=== PATIENT | female | born 1985 | race Caucasian/White ===

== ENCOUNTER 2018-01-16 14:01 | Emergency (ER) | payer BC, OTHER ==
[2018-01-16 14:47] VITALS: RESP 18
[2018-01-16 15:39] LABS: Basophils % (A) 0 %; Eosinophils # (A) 0.2 k/uL (0-0.7); Eosinophils % (A) 2 %; HCT 37.3 % (34.0-46.0); HGB 12.9 gm/dL (11.4-16.0); Lymphocytes # (A) 1.9 k/uL (1.0-4.8); Lymphocytes % (A) 22 %; MCH 33.2 pg (25.0-35.0); MCHC 34.4 g/dL (31.0-37.0); MCV 96.5 fL (80.0-100.0); Mean Platelet Volume 6.7; Monocytes # (A) 0.5 k/uL (0-1.0); Monocytes % (A) 6 %; Neutrophils # (A) 5.6 k/uL (1.3-7.7); Neutrophils % (A) 67 %; Platelet Count 280 k/uL (150-450); RBC 3.87 m/uL (3.80-5.40); RDW 12.3 % (11.5-15.5); WBC 8.4 k/uL (3.8-10.6)
[2018-01-16 15:47] LABS: Appearance,Urine Clear (Clear); Bilirubin,Urine Negative (Negative); Blood,Urine Small (Negative); Color,Urine Light Yellow; Glucose,Urine (UA) Negative (Negative); Ketones,Urine Negative (Negative); Leukocyte Esterase,Urine Negative (Negative); Mucus,Urine Rare /hpf; Nitrite,Urine Negative (Negative); PH, Urine 6.5 (5.0-8.0); Protein,Urine Negative (Negative); RBC,Urine 1 /hpf (0-5); Specific Gravity,Urine 1.013 (1.001-1.035); Squamous Epithelial Cell,Urine 2 /hpf (0-4); Urobilinogen,Urine <2.0 mg/dL (<2.0); WBC,Urine <1 /hpf (0-5)
[2018-01-16 15:50] LABS: Anion Gap 6 mmol/L; Blood Urea Nitrogen 10 mg/dL (7-17); Calcium 9.1 mg/dL (8.4-10.2); Carbon Dioxide 25 mmol/L (22-30); Chloride 106 mmol/L (98-107); Glucose 82 mg/dL (74-99); Potassium 4.2 mmol/L (3.5-5.1); Sodium 137 mmol/L (137-145)
--- NOTE | 2018-01-16 16:18 | US ---
EXAMINATION TYPE: Ultrasound OB <= 14 week fetus DATE OF EXAM: 01/16/2018 COMPARISON: None CLINICAL HISTORY: 32-year-old female Pain. Cramping per patient EXAM PERFORMED: Transabdominal (TA) FINDINGS: EXAM MEASUREMENTS: GESTATIONAL AGE / DATING Dates by LMP: (6 weeks/1 days) EDC: 09/10/2018 Dates by Current Scan for: ( 6 weeks/1 days) EDC: 09/10/2018 MATERNAL ANATOMY Uterus: 9.1 x 6.5 x 5.1 Right Ovary: 2.8 x 1.8 x 1.6 cm Left Ovary: 2.5 x 2.1 x 1.9 Post CDS / Adnexa: no free fluid Presence of free fluid: no Presence of corpus luteal cyst: left ovarian lesion = 1.4 x 1.2 x 1.0 cm Presence of subchorionic bleed: no GESTATION / SURVEY CRL: 0.4 cm (6 weeks/1 days) MSD: seen, not measured Yolk Sac (normal less than 6mm): 2.0 mm Heart Rate: 134 bpm Rhythm: Normal IUP: Viable IUP Date of LMP: 12/04/2017, Beta HcG (if available): Not available at this time Civil Drafter notes: Single live IUP measuring 6 weeks 1 day IMPRESSION: Single live intrauterine with gestational age of 6 weeks 1 day by crown-rump length. Size e quals dates. 1.4 cm corpus luteum in the left ovary. Complete survey recommended at 18-20 weeks.
--- NOTE | 2018-01-16 16:36 | ED ---
Abdominal Pain HPI - General Chief Complaint: Abdominal Pain Stated Complaint: Cramping and 5 wks Time Seen by Provider: 01/16/18 14:59 Source: patient, RN notes reviewed Mode of arrival: ambulatory Limitations: no limitations - History of Present Illness Initial Comments: This is a 32-year-old female presents emergency Department chief complaint abdominal pain and early . Patient states that she does have some left lower quadrant abdominal pain. Patient states proximal was 6 weeks . Patient denies any vaginal bleeding or vaginal discharge. Denies any nausea vomiting diarrhea constipation. Patient has not seen DISTANCE LEARNING COORDINATOR at this time. Patient is A0 denies any fevers or chills. Patient offers no other complaints. - Related Data Home Medications Medication Instructions Recorded Confirmed Pnv72/Iron,Gluc/Folic/Dss/Dha 1 tab PO DAILY 05/23/14 01/16/18 [Citranatal 90 Dha Combo Pack] Allergies Allergy/AdvReac Type Severity Reaction Status Date / Time No Known Allergies Allergy Verified 01/16/18 14:47 Review of Systems ROS Statement: Those systems with pertinent positive or pertinent negative responses have been documented in the HPI. ROS Other: All systems not noted in ROS Statement are negative. Past Medical History Past Medical History: No Reported History History of Any Multi-Drug Resistant Organisms: None Reported Past Surgical History: No Surgical Hx Reported Past Anesthesia/Blood Transfusion Reactions: No Reported Reaction Past Psychological History: No Psychological Hx Reported Smoking Status: Current every day smoker Past Alcohol Use History: None Reported Past Drug Use History: None Reported - Past Family History Father Family Medical History: Diabetes Mellitus General Exam Limitations: no limitations General appearance: alert, in no apparent distress Head exam: Present: atraumatic, normocephalic, normal inspection Respiratory exam: Present: normal lung sounds bilaterally. Absent: respiratory distress, wheezes, rales, rhonchi, stridor Cardiovascular Exam: Present: regular rate, normal rhythm, normal heart sounds. Absent: systolic murmur, diastolic murmur, rubs, gallop, clicks GI/Abdominal exam: Present: soft, normal bowel sounds. Absent: distended, tenderness, guarding, rebound, rigid Back exam: Absent: CVA tenderness (R), CVA tenderness (L) Skin exam: Present: warm, dry, intact, normal color. Absent: rash Course Vital Signs 01/16/18 14:45 Temperature 98.5 F Pulse Rate 73 Respiratory 18 Rate Blood Pressure 100/62 O2 Sat by Pulse 100 Oximetry Medical Decision Making - Medical Decision Making 32-year-old female presents emergency department for abdominal pain and . Patient has a single viable IUP 6 weeks 1 day with a left ovarian cyst. Lab work urinalysis otherwise unremarkable. - Lab Data Result diagrams: 01/16/18 15:22 01/16/18 15:22 Lab Results 01/16/18 01/16/18 01/16/18 Range/Units 15:22 15:22 15:30 WBC 8.4 (3.8-10.6) k/uL RBC 3.87 (3.80-5.40) m/uL Hgb 12.9 (11.4-16.0) gm/dL Hct 37.3 (34.0-46.0) % MCV 96.5 (80.0-100.0) fL MCH 33.2 (25.0-35.0) pg MCHC 34.4 (31.0-37.0) g/dL RDW 12.3 (11.5-15.5) % Plt Count 280 (150-450) k/uL Neutrophils % 67 % Lymphocytes % 22 % Monocytes % 6 % Eosinophils % 2 % Basophils % 0 % Neutrophils # 5.6 (1.3-7.7) k/uL Lymphocytes # 1.9 (1.0-4.8) k/uL Monocytes # 0.5 (0-1.0) k/uL Eosinophils # 0.2 (0-0.7) k/uL Basophils # 0.0 (0-0.2) k/uL Sodium 137 (137-145) mmol/L Potassium 4.2 (3.5-5.1) mmol/L Chloride 106 (98-107) mmol/L Carbon Dioxide 25 (22-30) mmol/L Anion Gap 6 mmol/L BUN 10 (7-17) mg/dL Creatinine 0.51 L (0.52-1.04) mg/dL Est GFR (CKD-EPI)AfAm >90 (>60 ml/min/1.73 sqM) Est GFR (CKD-EPI)NonAf >90 (>60 ml/min/1.73 sqM) Glucose 82 (74-99) mg/dL Calcium 9.1 (8.4-10.2) mg/dL Urine Color Light Yellow Urine Appearance Clear (Clear) Urine pH 6.5 (5.0-8.0) Ur Specific [place] 1.013 (1.001-1.035) Urine Protein Negative (Negative) Urine Glucose (UA) Negative (Negative) Urine Ketones Negative (Negative) Urine Blood Small H (Negative) Urine Nitrite Negative (Negative) Urine Bilirubin Negative (Negative) Urine Urobilinogen <2.0 (<2.0) mg/dL Ur Leukocyte Esterase Negative (Negative) Urine RBC 1 (0-5) /hpf Urine WBC <1 (0-5) /hpf Ur Squamous Epith Cells 2 (0-4) /hpf Urine Mucus Rare H (None) /hpf Disposition Clinical Impression: , Ovarian cyst Disposition: HOME SELF-CARE Condition: Stable Instructions: Abdominal Pain in (ED) Additional Instructions: Please return to the Emergency Department if symptoms worsen or any other concerns. Is patient prescribed a controlled substance at d/c from ED?: No Referrals: None,Stated [Primary Care Provider] - 1-2 days Time of Disposition: 16:36
[2018-01-16 16:49] VITALS: BP 104/61; PULSE 66; TEMP 98.3
== END 2018-01-16 16:47 | disposition home or self-care (01) ==
LOC: EC 14:01
DX: O34.81 Maternal care for other abnormalities of pelvic organs, first trimester (principal); N83.202 Unspecified ovarian cyst, left side; O99.332 Smoking (tobacco) complicating pregnancy, second trimester; F17.200 Nicotine dependence, unspecified, uncomplicated; Z3A.01 Less than 8 weeks gestation of pregnancy
CPT/HCPCS: 36415; 76801; 80048; 81001; 85025; 86900; 86901; 99284

== ENCOUNTER 2018-08-20 19:20 | Outpatient (CLI) | payer BC ==
[2018-08-20 20:59] VITALS: BP 127/73; PULSE 97; RESP 16; TEMP 98.4
--- NOTE | 2018-08-27 10:19 | P.MSEPDOC ---
Presenting Problems - Arrival Data Date of Arrival on Unit: 08/20/18 Time of Arrival on Unit: 19:20 Mode of Transport: Ambulatory - Complaint OB-Reason for Admission/Chief Complaint: Possible Onset of Labor Medical History - Information : 3 Para: 2 Term: 2 : 0 Abortions: Spontaneous or Elective: 0 Number of Living Children: 2 - Gestational Age Gestational Age by MILENA (wks/days): 37 Weeks and 0 Days - History Complications: Smoker Review of Systems - Review of Systems Constitutional: No problems Breast: No problems ENT: No problems Cardiovascular: No problems Respiratory: No problems Gastrointestinal: No problems Genitourinary: No problems Musculoskeletal: No problems Neurological: No problems Skin: No problems Vital Signs - Temperature Temperature: 98.4 F Temperature Source: Temporal Artery Scan - Pulse Right Brachial Pulse Rate: 97 Pulse Assessment Method: Automatic Cuff - Respirations Respiratory Rate: 16 Oxygen Delivery Method: Room Air O2 Sat by Pulse Oximetry: 97 - Blood Pressure Right Arm Blood Pressure: 127/73 Blood Pressure Mean: 91 Blood Pressure Source: Automatic Cuff Medical Screen Scoring (Pre) - Cervical Exam Dilation: 1-3 cm = 1 Membranes: Intact - Uterine Contractions Frequency: > 5 minutes apart = 1 Duration: N/A Intensity: N/A - Maternal Vital Signs Maternal Temperature: N/A Maternal Blood Pressure: N/A Signs of Preeclampsia: N/A Maternal Respirations: N/A - Pain Assessment Pain Location and Character: Lower, Abdomen Pain Scale Used: Numeric (1 - 10) Pain Intensity: 8 Pain Description: *Acute, Cramping Pain Frequency: Intermittent Pain Duration Units: Minutes Pain Behavior: Vocalization Pain Aggravating Factors: Contractions - Total Score Total Score (Pre): 2 - Level of Risk Level of Risk: N/A Physician Notification (Pre) - Physician Notified Physician Notified Date: 08/20/18 Physician Notified Time: 20:19 Physician/Practitioner Notifed:: Dr. Sharif Spoke With: Dr. Sharif New Order Received: Yes - Notification Comment Comment: Dr Sharif in unit, report given on pt in. tr. Vag exam. VS. Reactive NST. Orders recieved to. recheck pt after one hr from initial vag exam. If no. change in vag exam, pt may be d/c to home. Disposition - Disposition OB Disposition: Discharge to home Discharge Date: 08/20/18 Discharge Time: 20:40 I agree with the RN Medical Screening Exam: Yes Risk & Benefit of care provided described in d/c instruction: Yes Diagnosis: FALSE LABOR AT OR AFTER 37 COMPLETED WEEKS OF GESTATION
== END 2018-08-20 20:40 | disposition home or self-care (01) ==
LOC: FBPOP 19:20
PROVIDERS: ATTEND Obstetrics & Gynecology
DX: O47.1 False labor at or after 37 completed weeks of gestation (principal); O99.333 Smoking (tobacco) complicating pregnancy, third trimester; F17.200 Nicotine dependence, unspecified, uncomplicated; Z3A.37 37 weeks gestation of pregnancy
CPT/HCPCS: 59025; 99213

== ENCOUNTER 2018-08-29 17:05 | Outpatient (CLI) | payer BC ==
[2018-08-29 17:37] VITALS: BP 127/70; PULSE 107; RESP 16; TEMP 98.2
[2018-08-29] MEDS ORDERED: LACTATED RINGERS 1,000 ML IV SCH (18:30)
--- NOTE | 2018-09-06 12:43 | P.MSEPDOC ---
Presenting Problems - Arrival Data Date of Arrival on Unit: 08/29/18 Time of Arrival on Unit: 17:05 Mode of Transport: Ambulatory - Complaint OB-Reason for Admission/Chief Complaint: Possible Onset of Labor Comment: pt reports contraction for the past few days, have become stronger since this morning Medical History - Information : 3 Para: 2 Term: 2 : 0 Abortions: Spontaneous or Elective: 0 Number of Living Children: 2 - Gestational Age Gestational Age by MILENA (wks/days): 38 Weeks and 2 Days Review of Systems - Review of Systems Constitutional: No problems Breast: No problems ENT: No problems Cardiovascular: No problems Respiratory: No problems Gastrointestinal: No problems Genitourinary: No problems Musculoskeletal: No problems Neurological: No problems Skin: No problems Vital Signs - Temperature Temperature: 98.2 F Temperature Source: Oral - Pulse Right Pulse Rate: 107 Pulse Assessment Method: Automatic Cuff - Respirations Respiratory Rate: 16 Oxygen Delivery Method: Room Air - Blood Pressure Right Arm Blood Pressure: 127/70 Blood Pressure Mean: 89 Blood Pressure Source: Automatic Cuff Medical Screen Scoring (Pre) - Cervical Exam Dilation: 1-3 cm = 1 Membranes: Intact - Uterine Contractions Frequency: N/A - Maternal Vital Signs Maternal Temperature: N/A Maternal Blood Pressure: N/A Signs of Preeclampsia: N/A Maternal Respirations: N/A - Maternal Trauma Maternal Trauma: N/A - Assessment - Baby A Baseline FHR: 135 Heart Rate - NICHD Category: Category I (Normal) = 0 NST: Reactive Position: N/A Station: N/A - Total Score - Baby A Total Score - Baby A: 1 - Level of Risk - Baby A Level of Risk - Baby A: Low (0-5) - Pain Assessment Pain Location and Character: Abdomen Pain Scale Used: Numeric (1 - 10) Pain Intensity: 7 Pain Management Goal: 7 Pain Description: *Acute Pain Frequency: Intermittent Pain Duration: 3 Pain Duration Units: Days Pain Behavior: None Exhibited Pain Aggravating Factors: Contractions Physician Notification (Pre) - Physician Notified Physician Notified Date: 08/29/18 Physician Notified Time: 18:05 Physician/Practitioner Notifed:: kym Spoke With: kym New Order Received: Yes - Notification Comment Comment: report fht, contraction pattern, cervical exam. would like and iv bolus. Physician Notification (Post) - Physician Notified Physician Notified Date: 08/29/18 Physician Notified Time: 19:25 Physician/Practitioner Notified:: kym Spoke With: kym New Order Received: Yes - Notification Comment Comment: reported no cervical change after two hours and iv hydration. pt may be discharged home with instruction Disposition - Disposition OB Disposition: Discharge to home Discharge Date: 08/29/18 Discharge Time: 19:39 I agree with the RN Medical Screening Exam: Yes Risk & Benefit of care provided described in d/c instruction: Yes Diagnosis: FALSE LABOR AT OR AFTER 37 COMPLETED WEEKS OF GESTATION
== END 2018-08-29 19:45 | disposition home or self-care (01) ==
LOC: FBPOP 17:05
PROVIDERS: ATTEND Obstetrics & Gynecology Obstetrics
DX: O47.1 False labor at or after 37 completed weeks of gestation (principal); Z3A.38 38 weeks gestation of pregnancy
CPT/HCPCS: 59025; 96360; 96367; 99214

== ENCOUNTER 2018-09-06 06:30 | Inpatient (IN) | payer BC ==
[2018-09-06] MEDS ORDERED: PENICILLIN G POTASSIUM 5,000,000 UNIT in DEXTROSE 5% IN WATER 100 ML IVPB STA ×2 (06:51)
[2018-09-06] MEDS ORDERED: OXYTOCIN 10 UNIT/ML 1 ML VIAL IM PRN (06:51)
[2018-09-06] MEDS ORDERED: TERBUTALINE 1 MG/ML VIAL SQ PRN (06:51)
[2018-09-06] MEDS ORDERED: LIDOCAINE 0.5% (PF) 5 MG/ML (50 ML SDV) SQ PRN (06:51)
[2018-09-06] MEDS ORDERED: METHYLERGONOVINE 0.2 MG/ML 1 ML AMP IM PRN (06:51)
[2018-09-06] MEDS ORDERED: CARBOPROST TROMETHAMINE 250 MCG/ML 1 ML AMP IM PRN (06:51)
[2018-09-06] MEDS ORDERED: OXYTOCIN 30 UNITS/500 ML NS 30 UNIT in SALINE 1 500ML.BAG IV SCH (07:00)
[2018-09-06] MEDS ORDERED: LACTATED RINGERS 1,000 ML IV SCH (07:00)
[2018-09-06 07:18] LABS: Basophils % (A) 0 %; Eosinophils # (A) 0.2 k/uL (0-0.7); Eosinophils % (A) 1 %; HCT 40.3 % (34.0-46.0); HGB 13.2 gm/dL (11.4-16.0); Lymphocytes % (A) 16 %; MCH 32.2 pg (25.0-35.0); MCHC 32.8 g/dL (31.0-37.0); Mean Platelet Volume 8.1; Monocytes # (A) 0.9 k/uL (0-1.0); Monocytes % (A) 8 %; Neutrophils # (A) 8.9 k/uL (1.3-7.7); Neutrophils % (A) 73 %; Platelet Count 245 k/uL (150-450); RBC 4.12 m/uL (3.80-5.40); RDW 14.9 % (11.5-15.5); WBC 12.3 k/uL (3.8-10.6)
[2018-09-06 07:28] VITALS: BMI 27.6
[2018-09-06] MEDS ORDERED: BUTORPHANOL 1 MG/ML 1 ML VIAL IV PRN (08:37)
--- NOTE | 2018-09-06 08:41 | P.HPOB ---
History of Present Illness H&P Date: 09/06/18 Chief Complaint: 39+ weeks, elective induction The patient is a 32-year-old 3 para 2 scissors or 2 admitted at 39+ weeks as established by last menstrual period and confirmed by 6 week ultrasound. She is admitted for elective induction of labor with a favorable cervix and all signs reassuring. Her has been uncomplicated though she did have a low-grade Pap which will be followed up . She additionally was found to be group B strep positive. As result antibiotics have been started. Obstetrical history: 3 para 2001 with 2 term vaginal deliveries without complications. Current statistics are listed in history of present illness. EDC of 09/10/2018 was established by last menstrual period and confirmed by 6 week ultrasound. Laboratory workup demonstrates a blood type of O+ with a negative antibody screen. Rubella status is immune. The remainder of the laboratory workup was within normal limits aside from the low-grade Pap as noted above. One hour Glucola was normal and group B strep status is positive. Gynecologic history: Unremarkable with no history of any infections to include STDs. Review of Systems Review of systems is confined to history of present illness. Past Medical History Past Medical History: No Reported History History of Any Multi-Drug Resistant Organisms: None Reported Past Surgical History: No Surgical Hx Reported Past Anesthesia/Blood Transfusion Reactions: No Reported Reaction Past Psychological History: No Psychological Hx Reported Smoking Status: Current every day smoker Past Alcohol Use History: None Reported Past Drug Use History: None Reported - Past Family History Father Family Medical History: Diabetes Mellitus Medications and Allergies Home Medications Medication Instructions Recorded Confirmed Type Pnv72/Iron,Gluc/Folic/Dss/Dha 1 tab PO DAILY 05/23/14 09/06/18 History [Citranatal 90 Dha Combo Pack] Allergies Allergy/AdvReac Type Severity Reaction Status Date / Time No Known Allergies Allergy Verified 09/06/18 06:50 Exam Intake and Output 09/05/18 09/06/18 09/06/18 22:59 06:59 14:59 Other: Weight 77.564 kg In general, this is a well-developed, well-nourished female in no acute distress. Her heart has a regular rhythm and rate without murmur. Her lungs are clear to auscultation bilaterally in all villaseñor. Her abdomen is gravid, nondistended, has normal active bowel sounds, soft, nontender, and without any palpable masses aside from uterine fundus. Her extremities are without any cyanosis, clubbing, or edema and are nontender to palpation bilaterally. Digital cervical examination demonstrates her cervix to be approximately 4 cm dilated, 50% effaced, the vertex in presentation at -2-3 station. Artificial rupture of membranes is carried out demonstrating clear fluid. Results Result Diagrams: 09/06/18 06:50 Abnormal Lab Results - Last 24 Hours (Table) 09/06/18 Range/Units 06:50 WBC 12.3 H (3.8-10.6) k/uL Neutrophils # 8.9 H (1.3-7.7) k/uL Assessment and Plan (1) Term Current Visit: Yes Status: Acute Code(s): Z34.90 - ENCNTR FOR SUPRVSN OF NORMAL , UNSP, UNSP TRIMESTER SNOMED Code(s): 72697958 (2) Group B streptococcal infection in Current Visit: Yes Status: Acute Code(s): O98.819 - OTH MATERNAL INFEC/PARASTC DISEASES COMP PREG, UNSP TRI; B95.1 - STREPTOCOCCUS, GROUP B, CAUSING DISEASES CLASSD ELSWHR SNOMED Code(s): 170691334 Plan: The patient has been admitted for induction of labor understanding that the risk of an elective induction is slightly greater than if labor ensued spontaneously. As she is group E strep positive, penicillin has been started for prophylaxis. Pitocin augmentation has been started as well. She has undergone artificial rupture of membranes. She will have close maternal and surveillance and expectant management will be practiced. She is a good candidate for either IV or epidural analgesia, whichever she may choose.
[2018-09-06] MEDS ORDERED: BENZOCAINE/MENTHOL SPRAY 1 GM/SPRAY AEROSOL TOPICAL PRN (10:18)
[2018-09-06] MEDS ORDERED: diphenhydrAMINE 50 MG/ML 1 ML VIAL IVP PRN ×2 (10:18)
[2018-09-06] MEDS ORDERED: ZOLPIDEM 5 MG TAB PO PRN (10:18)
[2018-09-06] MEDS ORDERED: diphenhydrAMINE 50 MG CAP PO PRN (10:18)
[2018-09-06] MEDS ORDERED: WITCH HAZEL 1 EACH MED..PAD TOPICAL PRN (10:18)
[2018-09-06] MEDS ORDERED: SIMETHICONE 80 MG CHEWABLE PO PRN (10:18)
[2018-09-06] MEDS ORDERED: HYDROcodone/APAP 7.5-325MG 1 EACH TAB PO PRN (10:18)
[2018-09-06] MEDS ORDERED: HYDROcodone/APAP 5-325MG 1 EACH TAB PO PRN (10:18)
[2018-09-06] MEDS ORDERED: LANOLIN CREAM 5 GM TUBE TOPICAL PRN (10:18)
[2018-09-06] MEDS ORDERED: diphenhydrAMINE 25 MG CAP PO PRN (10:18)
[2018-09-06] MEDS ORDERED: HYDROCORTISONE 2.5% RECTAL CREAM 30 GM TUBE RECTAL PRN (10:18)
--- NOTE | 2018-09-06 10:21 | P.PROBDLV ---
Vaginal Delivery Note - . Vaginal Delivery Note: The patient is a 32-year-old 3 para 2 scissors or 2 admitted at 39-3/7 weeks by good dating parameters perches admitted for elective induction of labor with all signs reassuring. Her has been entirely uncomplicated though she was found to be group B strep positive. As result, she had penicillin started for antibiotic prophylaxis and additionally had Pitocin started. She underwent artificial rupture of membranes demonstrating clear fluid. She made rapid progress through both the latent and active phase of labor to complete and then pushed over the course of 1-2 contractions to a normal spontaneous vaginal delivery of a viable 6 lbs. 14 oz. baby girl with Apgars of 9 at 1 minute and 9 at 5 minutes delivered in the left occiput anterior position. The placenta was delivered spontaneously, intact, and grossly normal with a grossly normal ce ntrally inserted three-vessel cord. There were no lacerations of the perineum, vagina, or cervix. Estimated blood loss for the case was approximately 100 mL or less. There were no complications. Both mother and are resting comfortably in recovery.
[2018-09-06] MEDS ORDERED: OXYTOCIN 20 UNITS/1000 ML NS 1,000 ML IV SCH (10:30)
[2018-09-06] MEDS: IBUPROFEN 600 MG TAB PO PRN ×2 (10:32→18:57)
[2018-09-06] MEDS ORDERED: PENICILLIN G POTASSIUM 2,500,000 UNIT in DEXTROSE 5% IN WATER 100 ML IVPB SCH ×2 (11:00)
[2018-09-06] MEDS: NICOTINE 14MG/24HR PATCH TRANSDERM SCH (16:32)
[2018-09-06] MEDS: SENNOSIDES-DOCUSATE SODIUM 1 EACH TAB PO SCH (20:38)
[2018-09-06] MEDS: ACETAMINOPHEN TAB 325 MG TAB PO PRN (23:44)
[2018-09-07] MEDS: IBUPROFEN 600 MG TAB PO PRN ×4 (01:00→21:51)
[2018-09-07] MEDS: ACETAMINOPHEN TAB 325 MG TAB PO PRN ×4 (05:05→23:55)
[2018-09-07] MEDS: SENNOSIDES-DOCUSATE SODIUM 1 EACH TAB PO SCH ×2 (07:31→21:32)
[2018-09-07] MEDS: NICOTINE 14MG/24HR PATCH TRANSDERM SCH (11:22)
--- NOTE | 2018-09-07 13:02 | P.PNOBGVD ---
Subjective - Subjective Patient reports: Reports appetite normal, Reports voiding normally, Reports pain well controlled, Reports ambulating normally : doing well (Is to remain in the hospital for 48 hours of observation for inadequate antibiotic prophylaxis for group B strep.) Objective - Latest Vital Signs Latest vital signs: Vital Signs Temp Pulse Resp BP 09/07/18 07:35 98.0 F 74 18 111/69 09/06/18 23:47 98.4 F 66 16 106/65 09/06/18 20:00 98.4 F 68 16 102/60 09/06/18 16:00 98.3 F 65 17 119/76 - Exam Extremities: Present: normal Abdomen: Present: normal appearance, soft Uterus: Present: normal, firm (The uterine fundus is tonic and nontender just below the umbilicus.) Assessment and Plan (1) Term Current Visit: Yes Status: Acute Code(s): Z34.90 - ENCNTR FOR SUPRVSN OF NORMAL , UNSP, UNSP TRIMESTER SNOMED Code(s): 68725640 (2) Group B streptococcal infection in Current Visit: Yes Status: Acute Code(s): O98.819 - OTH MATERNAL INFEC/PARASTC DISEASES COMP PREG, UNSP TRI; B95.1 - STREPTOCOCCUS, GROUP B, CAUSING DISEASES CLASSD ELSWHR SNOMED Code(s): 598793386 (3) Normal spontaneous vaginal delivery Current Visit: Yes Status: Acute Code(s): O80 - ENCOUNTER FOR FULL-TERM UNCOMPLICATED DELIVERY SNOMED Code(s): 21065844 Plan: Continue routine care. Anticipate discharge home tomorrow pending applications.
[2018-09-08 01:36] VITALS: RESP 16
--- NOTE | 2018-09-08 08:43 | P.DS ---
Providers Date of admission: 09/06/18 06:32 Expected date of discharge: 09/08/18 Attending physician: Bari Sharif Primary care physician: Stated None - Discharge Diagnosis(es) (1) Term Current Visit: Yes Status: Acute (2) Group B streptococcal infection in Current Visit: Yes Status: Acute (3) Normal spontaneous vaginal delivery Current Visit: Yes Status: Acute Hospital Course: The patient is a 32-year-old 3 para 2001 admitted at 39+ weeks by good dating parameters. She is admitted for elective induction with a favorable cervix and all signs reassuring. Her was uncomplicated though group B strep status was positive. On labor and delivery, she had antibiotic prophylaxis started for group B strep as well as Pitocin augmentation. She underwent artificial rupture of membranes of clear fluid and then made very rapid progress through the latent and active phase of labor to complete. She pushed quickly to a normal spontaneous vaginal delivery of a viable 6 lbs. 14 oz. baby girl with Apgars of 9 at 1 minute and 9 at 5 minutes. Her course was unremarkable with vital signs remaining stable and her temperature was afebrile throughout. The infant was required to remain in the hospital for 48 hours ending the outcome of a culture secondary to inadequate antibiotic prophylaxis. The patient was deemed stable for discharge on day #2 was discharged home to follow-up in the office in 6 weeks routinely. Discharge instructions included calling for any significantly increased bleeding or foul- smelling lochia, significantly increased fever or abdominal pain, perineal complaints, breast complaints, or anything else that concerned her. She was additionally instructed to have nothing in the vagina for at least 6 weeks time to include intercourse. She understood her instructions and agrees to follow up as noted above. Discharge medications included continued vitamins as she is considering breast-feeding. She otherwise is to use [id number] analgesic pain medications as needed. Maternal blood type is O+ and rubella status is immune. Procedures: #1. Antibody prophylaxis #2. Pitocin induction #3. Artificial rupture of membranes #4. Normal spontaneous vaginal delivery Patient Condition at Discharge: Good Plan - Discharge Summary Discharge Rx Participant: Yes New Discharge Prescriptions: No Action Pnv72/Iron,Gluc/Folic/Dss/Dha [Citranatal 90 Dha Combo Pack] 1 tab PO DAILY Discharge Medication List Pnv72/Iron,Gluc/Folic/Dss/Dha [Citranatal 90 Dha Combo Pack] 1 tab PO DAILY 05/23/14 [History] Follow up Appointment(s)/Referral(s): Bari Sharif MD [STAFF PHYSICIAN] - 6 Weeks Discharge Disposition: HOME SELF-CARE
[2018-09-08 08:54] VITALS: BP 131/82; PULSE 69; TEMP 98.4
[2018-09-08] MEDS: IBUPROFEN 600 MG TAB PO PRN (09:39)
[2018-09-08] MEDS: SENNOSIDES-DOCUSATE SODIUM 1 EACH TAB PO SCH (10:23)
[2018-09-08] MEDS: NICOTINE 14MG/24HR PATCH TRANSDERM SCH (13:48)
== END 2018-09-08 12:00 | disposition home or self-care (01) | DRG 807 ==
LOC: 4FBP 06:32
PROVIDERS: ADMIT Obstetrics & Gynecology; ATTEND Obstetrics & Gynecology
PROC: 10E0XZZ Delivery of Products of Conception, External Approach (ICD-10-PCS; principal; 2018-09-06)
PROC: 10907ZC Drainage of Amniotic Fluid, Therapeutic from Products of Conception, Via Natural or Artificial Opening (ICD-10-PCS; 2018-09-06)
PROC: 3E033VJ Introduction of Other Hormone into Peripheral Vein, Percutaneous Approach (ICD-10-PCS; 2018-09-06)
DX: O99.824 Streptococcus B carrier state complicating childbirth (principal); Z37.0 Single live birth; F17.200 Nicotine dependence, unspecified, uncomplicated; O99.334 Smoking (tobacco) complicating childbirth; Z3A.39 39 weeks gestation of pregnancy; Z83.3 Family history of diabetes mellitus
CPT/HCPCS: 85025; 86850; 86900; 86901

== ENCOUNTER 2019-06-25 01:13 | Emergency (ER) | payer BC, OTHER ==
[2019-06-25 01:18] VITALS: RESP 18; TEMP 98.6
--- NOTE | 2019-06-25 02:00 | XR ---
EXAMINATION TYPE: XR chest 2V DATE OF EXAM: 06/25/2019 COMPARISON: NONE HISTORY: Cough TECHNIQUE: FINDINGS: Heart and mediastinum are normal. Lungs are clear. Diaphragm is normal. Bony thorax appears normal. Pulmonary vascularity is normal. IMPRESSION: Normal chest.
[2019-06-25] MEDS ORDERED: ALBUTEROL NEBULIZED 2.5 MG/3 ML INHALATION STA (02:07)
--- NOTE | 2019-06-25 03:10 | ED ---
General Adult HPI - General Chief complaint: Upper Respiratory Infection Stated complaint: Sore throat/Sneezing Time Seen by Provider: 06/25/19 01:23 Source: patient, RN notes reviewed, old records reviewed Mode of arrival: ambulatory Limitations: no limitations - History of Present Illness Initial comments: 33-year-old female patient with no pertinent past medical history presents to ED for chief complaint of 4 days of sore throat, mild productive cough, waxing and waning headache, sneezing, no fevers. Patient reports that she does feel that she has a mild amount of shortness of breath with coughing. Denies any other complaints at this time. Reports that her children have similar symptoms. Denies any recent travel, denies any exposure to known coronavirus patient, denies any fevers at home. Systemic: Pt denies fatigue, fever/chills, rash. Pt denies weakness, night sweats, weight loss. Neuro: Pt denies visual disturbances, syncope or pre-syncope. HEENT: Pt denies ocular discharge or irritation, otalgia, rhinorrhea, or notable lymphadenopathy. Cardiopulmonary: Pt denies chest pain, heart palpitations, dyspnea on exertion. Abdominal/GI: Pt denies abdominal pain, n/v/d. : Pt denies dysuria, burning w/ urination, frequency/urgency. Denies new onset urinary or bowel incontinence. MSK: Pt denies myalgia, loss of strength or function in extremities. Neuro: Pt denies new onset weakness, paresthesias. - Related Data Home Medications Medication Instructions Recorded Confirmed Pnv72/Iron,Gluc/Folic/Dss/Dha 1 tab PO DAILY 05/23/14 09/06/18 [Citranatal 90 Dha Combo Pack] Previous Rx's Medication Instructions Recorded Albuterol Inhaler [Ventolin Hfa 1 - 2 puff INHALATION Q4-6H PRN #1 06/25/19 Inhaler] inhaler Allergies Allergy/AdvReac Type Severity Reaction Status Date / Time No Known Allergies Allergy Verified 06/25/19 01:18 Review of Systems ROS Statement: Those systems with pertinent positive or pertinent negative responses have been documented in the HPI. ROS Other: All systems not noted in ROS Statement are negative. Past Medical History Past Medical History: No Reported History History of Any Multi-Drug Resistant Organisms: None Reported Past Surgical History: No Surgical Hx Reported Past Anesthesia/Blood Transfusion Reactions: No Reported Reaction Past Psychological History: No Psychological Hx Reported Smoking Status: Current every day smoker Past Alcohol Use History: None Reported Past Drug Use History: None Reported - Past Family History Father Family Medical History: Diabetes Mellitus General Exam - General Exam Comments Initial Comments: Constitutional: NAD, AOX3, Pt has pleasant affect. HEENT: NC/AT, trachea midline, neck supple, no lymphadenopathy. External ears appear normal, without discharge. Mucous membranes moist. Eyes PERRLA, EOM intact. There is no scleral icterus. No pallor noted. Cardiopulmonary: RRR, no murmurs, rubs or gallops, no JVD noted. Very mild wheezing noted right lower lung field. All other lung villaseñor clear to auscu ltation. No peripheral edema. Abdominal exam: Abdomen soft and non-distended. Abdomen non-tender to palpation in all 4 quadrants. Bowel sounds active in LLQ. No hepatosplenomegaly. No ecchymosis Neuro: CN II-XII intact. No nuchal rigidity. No raccon eyes, no martínez sign, no hemotympanum. No cervical spinal tenderness. MSK: No posterior calf tenderness bilaterally, homans sign negative bilaterally. Posterior tibialis and radial pulse +2 bilaterally. Sensation intact in upper and lower extremities. Full active ROM in upper and lower extremities, 5/5 stregnth. Limitations: no limitations Course Vital Signs 06/25/19 06/25/19 06/25/19 01:15 01:29 02:37 Temperature 98.6 F Pulse Rate 83 83 Respiratory 18 18 Rate Blood Pressure 115/74 O2 Sat by Pulse 99 Oximetry 06/25/19 06/25/19 02:49 03:15 Temperature Pulse Rate 83 71 Respiratory 18 Rate Blood Pressure 101/59 O2 Sat by Pulse 99 Oximetry Medical Decision Making - Medical Decision Making 33-year-old female patient with no pertinent past medical history presents to ED for chief complaint of 4 days of sore throat, mild productive cough, waxing and waning headache, sneezing, no fevers. Patient reports that she does feel that she has a mild amount of shortness of breath with coughing. Denies any other complaints at this time. Reports that her children have similar symptoms. Denies any recent travel, denies any exposure to known coronavirus patient, denies any fevers at home. Patient vital signs are stable, afebrile. Physical exam displayed very mild wheezing noted. Patient was administered breathing treatments states that she does feel improved. Chest x-ray displayed no acute process. EKG nonischemic. Patient will be discharged for follow-up with primary care provider and will return to ER if condition worsens. Pt advised to self quarantine. Case discussed with Dr. Wagner. - Lab Data Lab Results 06/25/19 Range/Units 02:20 Group A Strep Rapid Negative (Negative) - EKG Data -: EKG Interpreted by Me (and Dr. Wagner) EKG Comments: Ventricular rate 77, CO interval 164, QRS 86, QT/QTC 358/45. Normal sinus rhythm, normal EKG, no concern for acute ischemia. Disposition Clinical Impression: Cough, Upper respiratory infection Disposition: HOME SELF-CARE Condition: Stable Instructions (If sedation given, give patient instructions): Upper Respiratory Infection (ED) Additional Instructions: Follow-up with primary care provider tomorrow. Use albuterol inhaler as needed. Return to ER if condition worsens in any way. Self quarantine for the next 2 weeks. Prescriptions: Albuterol Inhaler [Ventolin Hfa Inhaler] 1 - 2 puff INHALATION Q4-6H PRN #1 inhaler PRN Reason: Cough Is patient prescribed a controlled substance at d/c from ED?: No Referrals: None,Stated [Primary Care Provider] - 1-2 days [facility] - 1-2 days
[2019-06-25 03:21] VITALS: BP 101/59; PULSE 71
== END 2019-06-25 03:21 | disposition home or self-care (01) ==
LOC: EC 01:13
DX: J06.9 Acute upper respiratory infection, unspecified (principal); F17.200 Nicotine dependence, unspecified, uncomplicated
CPT/HCPCS: 71046; 87081; 87430; 93005; 94640; 99285

== ENCOUNTER 2020-02-28 22:10 | Emergency (ER) | payer BC, OTHER ==
[2020-02-28 22:19] VITALS: BP 123/76; PULSE 81; RESP 16; TEMP 97.9
[2020-02-28] MEDS ORDERED: ACETAMINOPHEN TAB 500 MG TAB PO STA (22:28)
--- NOTE | 2020-02-28 22:31 | ED ---
Lower Extremity Injury HPI - General Chief Complaint: Extremity Injury, Lower Stated Complaint: Fall,L Ankle Pain Time Seen by Provider: 02/28/20 22:24 Source: patient Mode of arrival: wheelchair Limitations: no limitations - History of Present Illness Initial Comments: 34 year-old female patient presents to the emergency department today for evaluation of left ankle pain and swelling. Patient states on 8 PM this evening she slipped on ice in front of her house and fell injuring the ankle. Patient denies hitting her head or losing consciousness with the fall. Denies any numbness or tingling to the foot. States she has increased pain whenever she attempts to bear weight on the foot. She did take 2 Aleve at time of injury. Denies any neck or back pain. Denies any other known injuries. Patient denies any headache, chest pain, shortness of breath, dizziness, weakness, abdominal pain, nausea, vomiting, or difficulties with bowel movements or urination. - Related Data Home Medications Medication Instructions Recorded Confirmed Pnv72/Iron,Gluc/Folic/Dss/Dha 1 tab PO DAILY 05/23/14 09/06/18 [Citranatal 90 Dha Combo Pack] Previous Rx's Medication Instructions Recorded Albuterol Inhaler (Mhu) [Ventolin 1 - 2 puff INHALATION Q4-6H PRN #1 06/25/19 Hfa Inhaler (Mhu)] inhaler Allergies Allergy/AdvReac Type Severity Reaction Status Date / Time No Known Allergies Allergy Verified 02/28/20 22:17 Review of Systems ROS Statement: Those systems with pertinent positive or pertinent negative responses have been documented in the HPI. ROS Other: All systems not noted in ROS Statement are negative. Past Medical History Past Medical History: No Reported History History of Any Multi-Drug Resistant Organisms: None Reported Past Surgical History: No Surgical Hx Reported Past Anesthesia/Blood Transfusion Reactions: No Reported Reaction Past Psychological History: No Psychological Hx Reported Smoking Status: Never smoker Past Alcohol Use History: None Reported Past Drug Use History: None Reported - Past Family History Father Family Medical History: Diabetes Mellitus General Exam Limitations: no limitations General appearance: alert, in no apparent distress, other (Physical well- developed, well-nourished adult female patient in no acute distress. Vital signs upon presentation are temperature 97.9F, pulse 81, respirations 16, blood pressure 93/76, pulse ox 99% on room air.) Eye exam: Present: normal appearance, PERRL, EOMI. Absent: scleral icterus, conjunctival injection, periorbital swelling ENT exam: Present: normal exam, normal oropharynx, mucous membranes moist Respiratory exam: Present: normal lung sounds bilaterally. Absent: respiratory distress, wheezes, rales, rhonchi, stridor Cardiovascular Exam: Present: regular rate, normal rhythm, normal heart sounds. Absent: systolic murmur, diastolic murmur, rubs, gallop, clicks Extremities exam: Present: full ROM, tenderness (Generalized tenderness), normal capillary refill, joint swelling (Left), other (Skin is pink, warm, dry. Cap refills less than 3 seconds. Pedal and posttibial pulses are 2+ and equal bilaterally.). Absent: normal inspection, pedal edema, calf tenderness Neurological exam: Present: alert, oriented X3, CN II-XII intact Psychiatric exam: Present: normal affect, normal mood Skin exam: Present: warm, dry, intact, normal color. Absent: rash Course Vital Signs 02/28/20 02/28/20 22:15 23:20 Temperature 97.9 F 97.9 F Pulse Rate 81 81 Respiratory 16 16 Rate Blood Pressure 123/76 123/76 O2 Sat by Pulse 99 99 Oximetry Medical Decision Making - Medical Decision Making 34 year-old female patient presents to the emergency department today for evaluation of left ankle pain. Patient states that she twisted her ankle around 8:00 well slipping on ice. Physical examination did reveal mild soft tissue swelling surrounding the ankle. She also had some proximal fifth metatarsal tenderness. X-rays were obtained of the foot and ankle were negative for any acute fracture. Patient was placed in ankle stirrup splint. We did discuss management for ankle sprain including rest, ice, elevation. She is instructed take Tylenol Motrin for pain control. She is instructed to follow-up with her primary care physician for recheck in 1-2 days. Have repeat x-rays performed in 7-10 days if pain symptoms persist. Return parameters were discussed in detail. She verbalizes understanding and agrees with this plan. - Radiology Data Radiology results: report reviewed, image reviewed 3 views of the left foot are obtained. Report is reviewed in its entirety. Impression by Dr. Garcia shows negative left foot exam. No change. 3 views of the left ankle are obtained. Report was reviewed in its entirety. Impression by Dr. Garcia shows negative left ankle exam. Disposition Clinical Impression: Left ankle sprain Disposition: HOME SELF-CARE Condition: Good Instructions (If sedation given, give patient instructions): Ankle Sprain (ED) Additional Instructions: Rest, ice, elevate the left ankle. Use Tylenol and Motrin for pain control. Follow-up with the primary care physician for recheck in 1-2 days. Have repeat x-rays performed in 7-10 days if pain symptoms persist. Return to the emergency department immediately for any new, worsening, or concerning symptoms. Is patient prescribed a controlled substance at d/c from ED?: No Referrals: None,Stated [Primary Care Provider] - 1-2 days Jose Elizalde DO [Doctor of Osteopathic Medicine] - 1-2 days Time of Disposition: 23:10
--- NOTE | 2020-02-28 22:56 | XR ---
EXAMINATION TYPE: XR foot complete LT DATE OF EXAM: 02/28/2020 COMPARISON: 01/14/2010 HISTORY: Pain and swelling. Trauma. TECHNIQUE: 3 views FINDINGS: Metatarsals are intact. I see no fracture nor dislocation. Joint spaces are normal. The toe s appear intact. IMPRESSION: Negative left foot exam. No change.
--- NOTE | 2020-02-28 22:58 | XR ---
EXAMINATION TYPE: XR ankle complete LT DATE OF EXAM: 02/28/2020 COMPARISON: NONE HISTORY: Pain TECHNIQUE: 3 views FINDINGS: Ankle mortise is anatomic. I see no fracture nor dislocation. Joint spaces are normal. Soft tissues appear normal. IMPRESSION: Negative left ankle exam.
== END 2020-02-28 23:22 | disposition home or self-care (01) ==
LOC: EC 22:10
DX: S93.402A Sprain of unspecified ligament of left ankle, initial encounter (principal); W00.0XXA Fall on same level due to ice and snow, initial encounter; Y92.89 Other specified places as the place of occurrence of the external cause
CPT/HCPCS: 29515; 99283

== ENCOUNTER → 2020-05-03 | Outpatient (CLI) | payer BC, OTHER | END | disposition home or self-care (01) | LOC: LABWHC1 15:56 | PROVIDERS: ATTEND Emergency Medicine | DX: Z20.822 Contact with and (suspected) exposure to COVID-19 (principal) | CPT/HCPCS: U0003; C9803 ==

== ENCOUNTER → 2021-05-06 | Outpatient (CLI) | payer OTHER ==
--- NOTE | 2021-05-06 09:26 | XR ---
EXAMINATION TYPE: XR shoulder complete RT DATE OF EXAM: 05/06/2021 CLINICAL HISTORY: pain TECHNIQUE: Three views of the right shoulder are obtained. COMPARISON: None FINDINGS: There is no acute fracture/dislocation evident. The acromioclavicular and glenohumeral davide int spaces appear within normal limits. The visualized ribs are intact and unremarkable. IMPRESSION: 1. There is no acute fracture or dislocation. ICD 10 NO FRACTURE, INITIAL EVALUATION
--- NOTE | 2021-05-06 09:27 | XR ---
EXAMINATION TYPE: XR elbow complete RT DATE OF EXAM: 05/06/2021 COMPARISON: NONE HISTORY: Pain FINDINGS: Three views of the elbow demonstrate no pathologic joint effusion. The osseous structures are intact . There is no acute fracture or dislocation. IMPRESSION: 1. No acute fracture or dislocation. If symptoms persist follow-up study in 7 to 10 days could be ob tained.
--- NOTE | 2021-05-06 09:27 | XR ---
EXAMINATION TYPE: XR cervical spine comp DATE OF EXAM: 05/06/2021 CLINICAL HISTORY: pain COMPARISON: NONE TECHNIQUE: Frontal, lateral, oblique, swimmers, and open mouth view of the cervical spine are obtaine d. FINDINGS: The cervical spine is visualized in its entirety from C1 thru the top of T1 level. It is s atisfactory in alignment without evidence of acute fracture or dislocation. The pre-vertebral soft t issue appears within normal limits. Mild multilevel degenerative disc space narrowing and spondylosis . The C1-C2 articulation is unremarkable on the open mouth view. The oblique images are within raji l limits. IMPRESSION: No acute fracture or dislocation is seen in the cervical spine.ICD 10 NO FRACTURE, INITI AL EVALUATION
--- NOTE | 2021-05-06 09:50 | XR ---
EXAMINATION TYPE: XR wrist complete RT DATE OF EXAM: 05/06/2021 CLINICAL HISTORY: Numbness and tingling down right arm for one month. TECHNIQUE: Frontal, lateral and oblique images of the right wrist are obtained. 4 view scaphoid vie w is performed. COMPARISON: None FINDINGS: There is no acute fracture/dislocation evident in the right wrist. Subchondral cystic spann ge in the ulnar styloid with adjacent small round calcified density possible loose body. Carpal joint spaces are maintained. The overlying soft tissue appears unremarkable. IMPRESSION: As above.
== END | disposition home or self-care (01) ==
LOC: RADXRMAIN 08:43
PROVIDERS: ATTEND Emergency Medicine
DX: M85.68 Other cyst of bone, other site (principal)
CPT/HCPCS: 72050

== ENCOUNTER 2022-10-25 09:02 | Emergency (ER) | payer BC, OTHER ==
--- NOTE | 2022-10-25 09:38 | ED ---
Recheck HPI - General Chief Complaint: Recheck/Abnormal Lab/Rx Stated Complaint: Pain Med Refill,Neck surgery 10/22/22 Time Seen by Provider: 10/25/22 09:23 Source: patient, RN notes reviewed Mode of arrival: ambulatory Limitations: no limitations - History of Present Illness Initial Comments: Patient is a 37-year-old female presenting to the emergency room with request of pain medication refill to treat her neck pain from neck surgery that was completed on 10/22/2022 outside of the area. She denies any new trauma or new pain. She denies any new radiculopathy neuropathy numbness or tingling. She has been wearing her cervical collar as advised by her surgeon. In addition to her Percocet that her surgeon prescribed she is on gabapentin and Flexeril normally to help with her pain symptoms but was placed on Robaxin postoperatively. She is almost out of her Robaxin and concerned about being off of muscle relaxer as well when she runs out. She states that she attempted to contact her surgeon and was advised by someone at the office to go to the nearest emergency room however she did not discuss her pain needs with her surgeon. She denies any other significant past medical history. - Related Data Home Medications Medication Instructions Recorded Confirmed Pnv72/Iron,Gluc/Folic/Dss/Dha 1 tab PO DAILY 05/23/14 09/06/18 [Citranatal 90 Dha Combo Pack] Previous Rx's Medication Instructions Recorded Albuterol Inhaler [Ventolin Hfa 1 - 2 puff INHALATION Q4-6H PRN #1 06/25/19 Inhaler] inhaler Allergies Allergy/AdvReac Type Severity Reaction Status Date / Time No Known Allergies Allergy Verified 10/25/22 09:15 Review of Systems ROS Statement: Those systems with pertinent positive or pertinent negative responses have been documented in the HPI. ROS Other: All systems not noted in ROS Statement are negative. Past Medical History Past Medical History: Musculoskeletal Disorder Additional Past Medical History / Comment(s): Chronic neck and back pain History of Any Multi-Drug Resistant Organisms: None Reported Past Surgical History: No Surgical Hx Reported Past Anesthesia/Blood Transfusion Reactions: No Reported Reaction Past Psychological History: No Psychological Hx Reported Smoking Status: Never smoker Past Alcohol Use History: None Reported Past Drug Use History: None Reported - Past Family History Father Family Medical History: Diabetes Mellitus General Exam Limitations: no limitations General appearance: alert, in no apparent distress Head exam: Present: atraumatic, normocephalic, normal inspection Eye exam: Present: normal appearance, PERRL, EOMI. Absent: scleral icterus, conjunctival injection, periorbital swelling ENT exam: Present: mucous membranes moist, normal external ear exam Neck exam: Present: other (C-collar intact) Respiratory exam: Absent: respiratory distress, accessory muscle use Cardiovascular Exam: Present: regular rate GI/Abdominal exam: Absent: distended Extremities exam: Present: normal inspection. Absent: pedal edema, joint swelling Back exam: Present: normal inspection Neurological exam: Present: alert, oriented X3, CN II-XII intact Psychiatric exam: Present: anxious Skin exam: Present: warm, dry, intact, normal color, other (C-collar intact cervical incision not assessed.). Absent: rash Course Vital Signs 10/25/22 10/25/22 09:09 10:25 Temperature 98.3 F 98.1 F Pulse Rate 80 84 Respiratory 18 16 Rate Blood Pressure 116/78 118/76 O2 Sat by Pulse 100 100 Oximetry Medical Decision Making - Medical Decision Making Was pt. sent in by a medical professional or institution (Dr. PA, OPHTHALMOLOGY ASSISTANT, urgent care, hospital, or longterm...) When possible be specific @ -No Did you speak to anyone other than the patient for history (EMS, parent, family, police, friend...)? What history was obtained from this source @ -No Did you review nursing and triage notes (agree or disagree)? Why? @ -I reviewed and agree with nursing and triage notes Were old charts reviewed (outside hosp., previous admission, EMS record, old EKG, old radiological studies, urgent care reports/EKG's, longterm records)? Report findings @ -No old charts were reviewed Differential Diagnosis (chest pain, altered mental status, abdominal pain women, abdominal pain men, vaginal bleeding, weakness, fever, dyspnea, syncope, headache, dizziness, GI bleed, back pain, seizure, CVA, palpatations, mental health, musculoskeletal)? @ -not applicable EKG interpreted by me (3pts min.). @ -None done X-rays interpreted by me (1pt min.). @ -None done CT interpreted by me (1pt min.). @ -None done U/S interpreted by me (1pt. min.). @ -None done What testing was considered but not performed or refused? (CT, X-rays, U/S, labs)? Why? @ -None What meds were considered but not given or refused? Why? @ -None Did you discuss the management of the patient with other professionals (professionals i.e. , PA, OPHTHALMOLOGY ASSISTANT, lab, RT, psych nurse, social services specialist, balance assembler, teacher, transit authority police officer, caseworker)? Give summary @ -No Was smoking cessation discussed for >3mins.? @ -No Was critical care preformed (if so, how long)? @ -No Were there social determinants of health that impacted care today? How? (Homelessness, low income, unemployed, alcoholism, drug addiction, transportation, low edu. Level, literacy, decrease access to med. care, longterm, rehab)? @ -No Was there de-escalation of care discussed even if they declined (Discuss DNR or withdrawal of care, Hospice)? DNR status @ -No What co-morbidities impacted this encounter? (DM, HTN, Smoking, COPD, CAD, Cancer, CVA, ARF, Chemo, Hep., AIDS, mental health diagnosis, sleep apnea, mo rbid obesity)? @ -None Was patient admitted / discharged? Hospital course, mention meds given and route, prescriptions, significant lab abnormalities, going to OR and other pertinent info. @ -37-year-old female presenting to the emergency room with requesting of pain medication refill for her recent neck surgery in which she is on Percocet and Robaxin for in addition to gabapentin. She reports almost out of her Robaxin but does have Flexeril from previous prescription. Advised that opiate refills are not provided by the emergency room and advised patient to follow-up with her surgeon regarding medication refills and/or her pain management clinic. Advised patient that she may resume her Flexeril once her Robaxin is completed and to c ontinue her gabapentin as prescribed. Return parameters to the emergency room discussed at length. Will discharge home in stable condition advising follow-up with surgeon for further management of acute on chronic pain secondary to neck surgery. Undiagnosed new problem with uncertain prognosis? @ -No Drug Therapy requiring intensive monitoring for toxicity (Heparin, Nitro, Insulin, Cardizem)? @ -No Were any procedures done? @ -No Diagnosis/symptom? @ -Postoperative pain encounter for medication refill not provided Acute, or Chronic, or Acute on Chronic? @ -Acute Uncomplicated (without systemic symptoms) or Complicated (systemic symptoms)? @ -Uncomplicated Side effects of treatment? @ -No Exacerbation, Progression, or Severe Exacerbation? @ -No Poses a threat to life or bodily function? How? (Chest pain, [place], [place], pneumonia, PE, COPD, DKA, ARF, appy, cholecystitis, CVA, Diverticulitis, Homicidal, Suicidal, threat to staff... and all critical care pts) @ -No Case discussed with Dr. Delarosa. Disposition Clinical Impression: Encounter for medication refill Disposition: HOME SELF-CARE Condition: Stable Instructions (If sedation given, give patient instructions): Opioid Safety (ED) Additional Instructions: Patient advised to follow-up with her surgeon regarding postoperative pain medication refill. Advise continuation of Robaxin as prescribed. Advise once no Robaxin left to resume her previously prescribed Flexeril and to continue her previously prescribed gabapentin. Please return to the Emergency Department if symptoms worsen or any other concerns. Is patient prescribed a controlled substance at d/c from ED?: No Referrals: Vicente Wilcox MD [Primary Care Provider] - 1-2 days Time of Disposition: 09:52
[2022-10-25 10:28] VITALS: BP 118/76; PULSE 84; RESP 16; TEMP 98.1
== END 2022-10-25 10:25 | disposition home or self-care (01) ==
LOC: EC 09:02
DX: Z76.0 Encounter for issue of repeat prescription (principal)
CPT/HCPCS: 99283